=== PATIENT | male | born 1965 | race Two or more races ===

== ENCOUNTER 2018-08-06 11:30 | Inpatient (IN) | payer OTHER ==
[2018-08-06 11:59] VITALS: BMI 25.0
--- NOTE | 2018-08-06 16:59 | HP ---
CIWA Score - CIWA Score Nausea/Vomitin-No Nausea/No Vomiting Muscle Tremors: 4-Moderate,w/Arms Extend Anxiety: 2 Agitation: 2 Paroxysmal Sweats: 2 Orientation: 1-Uncertain about Date (no distress) Tacttile Disturbances: 1-Very Mild Itch/Numbness Auditory Disturbances: 1-Very Mild Visual Disturbances: 1-Very Mild Sensitivity Headache: 0-None Present CIWA-Ar Total Score: 14 Admission [facility] - HPI Chief Complaint: Benzo and alcohol withdrawal Allergies/Adverse Reactions: Allergies Allergy/AdvReac Type Severity Reaction Status Date / Time No Known Drug Allergies Allergy Severe Hives and Verified 08/06/18 14:15 swelling of the throat. FRESH FRUITS Allergy Severe Hives and Uncoded 08/06/18 14:14 swelling of the throat. FRESH VEGETABLES Allergy Severe Hives and Uncoded 08/06/18 14:16 swelling of the throat. NKDA Allergy Uncoded 08/06/18 14:16 History of Present Illness: Pt is a 50yr old male with a history of nicotine, alcohol, klonopin, xanax dependence seeking detox for treatment. Last detox [facility] March 2016. MMTP: Agustin Garcias receiving 170mg last dose received today, dose pending verification. Reports was in the emergency room three days ago for pneumonia and is currently on abx. PMHX: Hep C, COPD, spinal stenosis, HDL, Pre-diabetes, depression, bipolar. Denies suicidal / homicidal ideation. Reports hx of suicide attempt six months ago and was admitted to [facility]. Reports hx of benzo seizure withdrawal seizure with last episode eight months ago. Reports hx of incarceration for drug sales [phone]. Longest period of sobriety 15 years. Exam Limitations: No Limitations - Ebola screening Have you traveled outside of the country in the last 21 days: No (N) Have you had contact with anyone from an Ebola affected area: No Have you been sick,other than usual withdrawal symptoms: No Do you have a fever: No - Review of Systems Constitutional: Loss of Appetite, Weakness, Unintentional Wgt. Loss (15 lbs last 30 days) EENT: reports: Other (wears aglsses) Respiratory: reports: See HPI, SOB with Exertion GI: reports: Constipated (last BM this morning), Poor Appetite, Poor Fluid Intake : reports: Frequency Musculoskeletal: reports: Back Pain Integumentary: reports: No Symptoms Reported Neuro: reports: See HPI, Dizziness Endocrine: reports: Increased Thirst Hematology: reports: No Symptoms Reported Psychiatric: reports: Orientated x3, Depressed Other Systems: Reviewed and Negative Patient History - Patient Medical History Hx Anemia: No Hx Asthma: No Hx Chronic Obstructive Pulmonary Disease (COPD): Yes Hx Cancer: No Hx Cardiac Disorders: No Hx Congestive Heart Failure: No Hx Hypertension: No Hx Hypercholesterolemia: No Hx Pacemaker: No HX Cerebrovascular Accident: No Hx Seizures: Yes (drug related x2-last episode was in 2015) Hx Dementia: No Hx Diabetes: Yes (Pre-Diabetes ) Hx Gastrointestinal Disorders: No Hx Liver Disease: Yes (Hep C) Hx Genitourinary Disorders: No Hx Sexually Transmitted Disorders: No Hx Renal Disease (ESRD): No Hx Thyroid Disease: No Hx Human Immunodeficiency Virus (HIV): No (negative) Hx Hepatitis C: Yes (Treated ) Hx Depression: Yes Hx Suicide Attempt: Yes (pill overdose in 02/2018) Hx Bipolar Disorder: No Hx Schizophrenia: No - Patient Surgical History Past Surgical History: Yes Hx Neurologic Surgery: No Hx Cataract Extraction: No Hx Cardiac Surgery: No Hx Lung Surgery: No Hx Breast Surgery: No Hx Breast Biopsy: No Hx Abdominal Surgery: No Hx Appendectomy: No Hx Cholecystectomy: No Hx Genitourinary Surgery: No Hx Section: No Hx Orthopedic Surgery: No Other Surgical History: bilateral inguinal hernia repair Anesthesia Reaction: No - PPD History Previous Implant?: Yes Documented Results: Negative w/proof Implanted On Prior [facility] Admission?: Yes Date: 04/07/16 Results: 0 mm PPD to be Administered?: Yes - Smoking Cessation Smoking history: Current every day smoker Have you smoked in the past 12 months: Yes Aproximately how many cigarettes per day: 2 If you are a former smoker, when did you quit?: 01/2016 Hx Chewing Tobacco Use: No Initiated information on smoking cessation: Yes 'Breaking Loose' booklet given: 08/06/18 - Substance & Tx. History Hx Alcohol Use: Yes Hx Substance Use: Yes Substance Use Type: Alcohol, Tranquilizers Hx Substance Use Treatment: Yes (Last detox [facility] March 2016.) - Substances Abused Alcohol-four [place] Route: Oral Frequency: Daily Amount used: 3 cans (24 oz.) Age of first use: 15 Date of Last Use: 08/06/18 Cloninpine Route: Oral Frequency: Daily Amount used: 4-6 pills Age of first use: 35 Date of Last Use: 08/06/18 Methadone Route: Oral Frequency: Daily Amount used: 170 mg Age of first use: 35 Date of Last Use: 08/06/18 Klonopin Route: Oral Frequency: Daily Amount used: 3-6 tabs. (20 mg.) Age of first use: 35 Date of Last Use: 08/06/18 Family Disease History - Family Disease History Family Disease History: Heart Disease: Mother, [place]: Grandparent, Father, Mother Admission Physical Exam [facility] - Vital Signs Vital Signs: Vital Signs - 24 hr 08/06/18 11:56 Temperature 97.2 F L Pulse Rate 75 Respiratory 17 Rate Blood Pressure 109/75 - Physical General Appearance: Yes: Disheveled, Moderate Distress, Thin, Tremorous, Anxious HEENTM: Yes: Hearing grossly Normal, Normal ENT Inspection, Normocephalic, Normal Voice, LIZBETH, Pharynx Normal, Tm's normal Respiratory: Yes: Chest Non-Tender, Lungs Clear, Normal Breath Sounds, No Respiratory Distress, No Accessory Muscle Use Neck: Yes: Within Normal Limits Breast: Yes: Breast Exam Deferred Cardiology: Yes: Regular Rhythm, Regular Rate Abdominal: Yes: Normal Bowel Sounds, Non Tender, Flat, Soft Genitourinary: Yes: Within Normal Limits Back: Yes: Normal Inspection Musculoskeletal: Yes: full range of Motion, Gait Steady, Pelvis Stable, Back pain Extremities: Yes: Normal Capillary Refill, Normal Inspection, Normal Range of Motion, Non-Tender Neurological: Yes: 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 intact, Fully Oriented, Alert, Motor Strength 5/5, Depressed Affect Integumentary: Yes: Normal Color, Warm, Moist Lymphatic: Yes: Within Normal Limits - Diagnostic (1) Chronic back pain Current Visit: Yes Status: Chronic Qualifiers: Back pain location: low back pain Back pain laterality: midline Sciatica presence: without sciatica Qualified Code(s): M54.5 - Low back pain; G89.29 - Other chronic pain (2) COPD (chronic obstructive pulmonary disease) Current Visit: Yes Status: Chronic Qualifiers: COPD type: unspecified COPD Qualified Code(s): J44.9 - Chronic obstructive pulmonary disease, unspecified (3) Prediabetes Current Visit: Yes Status: Chronic (4) Alcohol dependence with uncomplicated withdrawal Current Visit: Yes Status: Acute (5) Nicotine dependence Current Visit: Yes Status: Acute Qualifiers: Nicotine product type: cigarettes (6) Opioid dependence on agonist therapy Current Visit: No Status: Acute (7) Right foot drop Current Visit: Yes Status: Chronic (8) Uncomplicated sedative, hypnotic or anxiolytic withdrawal Current Visit: Yes Status: Acute Cleared for Admission [facility] - Detox or Rehab [facility] Level of Care: Medically Managed Detox Regimen/Protocol: Librium [facility] Breath Alcohol Content Breath Alcohol Content: 0 Urine Drug Screen - Results Drug Screen Negative: No Urine Drug Screen Results: BZO-Benzodiazepines, MTD-Methadone
[2018-08-06] MEDS ORDERED: ALBUTEROL SO4 2.5/IPRATROPIUM 0.5 INH SOL 3 ML VIAL.NEB. NEB PRN (17:10)
[2018-08-06] MEDS ORDERED: MAG HYDROX/AL HYDROX/SIMETH 30 ML UNIT-DOSE CUP PO PRN (17:12)
[2018-08-06] MEDS ORDERED: ACETAMINOPHEN 325 MG TABLET (FP) PO PRN (17:12)
[2018-08-06] MEDS ORDERED: NICOTINE POLACRILEX 2 MG GUM BC PRN (17:12)
[2018-08-06] MEDS ORDERED: P-EPHED 60MG/TRIPROLIDI 2.5MG TABLET PO PRN (17:12)
[2018-08-06] MEDS ORDERED: MAGNESIUM CITRATE 300 ML BOTTLE PO PRN (17:12)
[2018-08-06] MEDS ORDERED: LOPERAMIDE HCL 2 MG CAPSULE PO PRN (17:12)
[2018-08-06] MEDS ORDERED: IBUPROFEN 400 MG TABLET (FP) PO PRN (17:12)
[2018-08-06] MEDS ORDERED: MAGNESIUM HYDROX 2400MG/30ML ORAL SUSPENSION 30 ML CUP PO PRN (17:12)
[2018-08-06] MEDS ORDERED: guaiFENesin/D-METHORPHAN HB 10 ML UNIT-DOSE CUPS PO PRN (17:12)
[2018-08-06] MEDS ORDERED: chlordiazePOXIDE HCL 25 MG CAPSULE PO PRN (17:12)
[2018-08-06] MEDS ORDERED: MENTHOL/PHENOL 1 EACH UD MM PRN (17:12)
[2018-08-06] MEDS ORDERED: chlordiazePOXIDE HCL 25 MG CAPSULE PO ONE (18:00)
[2018-08-06] MEDS: DOXYCYCLINE HYCLATE 100 MG CAPSULE PO SCH (19:20)
[2018-08-06] MEDS: ALBUTEROL SO4 8 GM HFA INHALER IH PRN (19:21)
[2018-08-06] MEDS: THIAMINE HCL 100 MG TABLET (FP) PO SCH (22:24)
[2018-08-06] MEDS: BUDESONIDE/FORMETEROL FUMARATE 160/4.5 mcg INHALER IH SCH (22:24)
[2018-08-06] MEDS: chlordiazePOXIDE HCL 25 MG CAPSULE PO SCH (22:25)
[2018-08-06] MEDS: MELATONIN 5 MG TABLETS PO PRN (22:25)
[2018-08-07 01:04] LABS: URINE APPEARANCE CLEAR; URINE BILIRUBIN NEGATIVE (<2.0 mg/dL); URINE COLOR YELLOW; URINE GLUCOSE (UA) NEGATIVE (NEGATIVE); URINE KETONE NEGATIVE (NEGATIVE); URINE LEUK ESTERASE TRACE (NEGATIVE); URINE NITRITE NEGATIVE (NEGATIVE); URINE PROTEIN NEGATIVE (NEGATIVE); URINE UROBILINOGEN NEGATIVE mg/dL (0.2-1.0)
[2018-08-07 01:33] LABS: EPI CELLS RARE /HPF (FEW); URINE HYALINE CAST 3 /lpf; URINE MUCUS RARE
[2018-08-07] MEDS: DOXYCYCLINE HYCLATE 100 MG CAPSULE PO SCH ×2 (05:25→18:12)
[2018-08-07] MEDS: chlordiazePOXIDE HCL 25 MG CAPSULE PO SCH ×4 (05:25→22:15)
[2018-08-07] MEDS: ALBUTEROL SO4 8 GM HFA INHALER IH PRN ×2 (05:26→08:50)
[2018-08-07] MEDS ORDERED: METHADONE HCL 40 MG DISPERSABLE TABLET PO ONE (08:47)
[2018-08-07] MEDS ORDERED: predniSONE 20 MG TABLET (UD) PO SCH (10:00)
[2018-08-07 10:12] LABS: HEMOGLOBIN 13.3 GM/dL (11.7-16.9); MCH 28.6 pg (25.7-33.7); MCHC 31.8 g/dl (32.0-35.9); MEAN CELL VOLUME 90.1 fl (80-96); MEAN PLT VOLUME 8.7 fl (7.5-11.1); PLATELET COUNT 238 K/MM3 (134-434); RBC 4.66 M/mm3 (4.00-5.60); RDW 14.8 % (11.9-15.9); WHITE BLOOD COUNT 9.5 K/mm3 (4.0-10.0)
--- NOTE | 2018-08-07 10:15 | EKG ---
Test Reason : Blood Pressure : / mmHG Vent. Rate : 086 BPM Atrial Rate : 086 BPM P-R Int : 146 ms QRS Dur : 080 ms QT Int : 338 ms P-R-T Axes : 084 079 074 degrees QTc Int : 404 ms NORMAL SINUS RHYTHM NORMAL ECG NO PREVIOUS ECGS AVAILABLE Confirmed by CAROL DRAPER MD ([id number]) on 08/07/2018 10:14:48 AM Referred By: Confirmed By:CAROL DRAPER MD
[2018-08-07 10:33] LABS: ALBUMIN 4.1 g/dl (3.4-5.0); ALK PHOS 72 U/L (45-117); ANION GAP 9 MMOL/L (8-16); BILIRUBIN,TOTAL 0.2 mg/dL (0.2-1); BLOOD UREA NITROGEN 14 mg/dL (7-18); CALCIUM 9.6 mg/dL (8.5-10.1); CHLORIDE 108 mmol/L (98-107); CO2 27 mmol/L (21-32); GLUCOSE,RANDOM 78 mg/dL (74-106); POTASSIUM 4.2 mmol/L (3.5-5.1); SGOT/AST 48 U/L (15-37); SGPT/ALT 40 U/L (13-61); SODIUM 144 mmol/L (136-145)
[2018-08-07] MEDS: predniSONE 20 MG TABLET (UD) PO SCH (10:34)
[2018-08-07] MEDS: NICOTINE 14 MG/24 HOURS TOPICAL PATCH TD SCH (10:34)
[2018-08-07] MEDS: PRENATAL VITAMINS W/ FOLIC ACID TABLET (FP) PO SCH (10:34)
[2018-08-07] MEDS: BUDESONIDE/FORMETEROL FUMARATE 160/4.5 mcg INHALER IH SCH ×2 (10:34→22:14)
[2018-08-07] MEDS ORDERED: FLU VACCINE QUAD 60 MCG/0.5 ML (MDV 18-19) IM ONE (12:00)
[2018-08-07] MEDS: DOCUSATE SODIUM 100 MG CAPSULE (FP) PO SCH ×2 (12:24→22:14)
--- NOTE | 2018-08-07 16:48 | PN ---
S CIWA - CIWA Score Nausea/Vomitin Muscle Tremors: 4-Moderate,w/Arms Extend Anxiety: 4-Mod. Anxious/Guarded Agitation: 4-Moderately Restless Paroxysmal Sweats: 3 Orientation: 0-Oriented Tacttile Disturbances: 0-None Auditory Disturbances: 0-None Visual Disturbances: 0-None Headache: 1-Very Mild CIWA-Ar Total Score: 18 BHS Progress Note (SOAP) Subjective: Tremor, sweating, constipation (no bm x 2 days, requesting colace 100mg bid and MOM) Objective: 08/07/18 16:47 Last Vital Signs Temp Pulse Resp BP Pulse Ox 97.8 F 80 18 128/73 08/07/18 14:22 08/07/18 14:22 08/07/18 14:22 08/07/18 14:22 Laboratory Tests 08/06/18 08/07/18 08/07/18 15:45 00:30 05:24 WBC RBC Hgb Hct MCV MCH MCHC RDW Plt Count MPV Sodium Potassium Chloride Carbon Dioxide Anion Gap BUN Creatinine Creat Clearance w eGFR POC Glucometer 103 Random Glucose Calcium Total Bilirubin AST ALT Alkaline Phosphatase Total Protein Albumin Urine Color Yellow Urine Appearance Clear Urine pH 5.0 Ur Specific [place] 1.013 Urine Protein Negative Urine Glucose (UA) Negative Urine Ketones Negative Urine Blood Negative Urine Nitrite Negative Urine Bilirubin Negative Urine Urobilinogen Negative Ur Leukocyte Esterase Trace Urine WBC (Auto) 3 Urine RBC (Auto) <1 Ur Epithelial Cells Rare Hyaline Casts 3 Urine Mucus Rare RPR Titer HIV 1&2 Antibody Screen Negative HIV P24 Antigen Negative 08/07/18 08/07/18 08/07/18 06:00 06:00 06:00 WBC 9.5 RBC 4.66 Hgb 13.3 Hct 42.0 MCV 90.1 MCH 28.6 MCHC 31.8 L RDW 14.8 Plt Count 238 D MPV 8.7 Sodium 144 Potassium 4.2 Chloride 108 H Carbon Dioxide 27 Anion Gap 9 BUN 14 Creatinine 1.0 Creat Clearance w eGFR > 60 POC Glucometer Random Glucose 78 Calcium 9.6 Total Bilirubin 0.2 AST 48 H ALT 40 Alkaline Phosphatase 72 Total Protein 8.0 Albumin 4.1 Urine Color Urine Appearance Urine pH Ur Specific [place] Urine Protein Urine Glucose (UA) Urine Ketones Urine Blood Urine Nitrite Urine Bilirubin Urine Urobilinogen Ur Leukocyte Esterase Urine WBC (Auto) Urine RBC (Auto) Ur Epithelial Cells Hyaline Casts Urine Mucus RPR Titer Nonreactive HIV 1&2 Antibody Screen HIV P24 Antigen Labs reviewed Assessment: 08/07/18 16:47 Withdrawal sxs Plan: Continue detox Encouraged PO water hydration
--- NOTE | 2018-08-07 16:57 | CONSULT ---
[facility] Psychiatric Consult - Data Date of interview: 08/07/18 Admission source: [facility] Identifying data: Re-admission to [facility] for this 50 y/o male seeking detox treatment on for alcohol and benzodiazepine dependence.Patient is ,a father of three,unemployed,domiciled and supported on SSI benefits. Substance Abuse History: Discussed with the patient in this interview.Mr Cox confirms substance abuse profile reported in the following [facility] current files : Smoking history: Current every day smoker. Have you smoked in the past 12 months: Yes. Aproximately how many cigarettes per day: 2. If you are a former smoker, when did you quit?: 01/2016. Hx Chewing Tobacco Use: No. Initiated information on smoking cessation: Yes. 'Breaking Loose' booklet given: . - Substance & Tx. History. Hx Alcohol Use: Yes. Hx Substance Use: Yes. Substance Use Type: Alcohol, Tranquilizers. Hx Substance Use Treatment: Yes ( Last detox [facility] March 2016.). - Substances Abused. Alcohol-four [place]. Route : Oral. Frequency: Daily. Amount used: 3 cans (24 oz.). Age of first use: 15. Date of Last Use: 08/06/18. Cloninpine. Route: Oral. Frequency: Daily. Amount used: 4-6 pills. Age of first use: 35. Date of Last Use: . Methadone. Route: Oral. Frequency: Daily. Amount used: 170 mg. Age of first use: 35. Date of Last Use: 08/06/18. Klonopin. Route: Oral. Frequency: Daily. Amount used: 3-6 tabs. (20 mg.). Age of first use: 35. Date of Last Use: 08/06/18 Medical History: COPD,emphysema,history of herniated disks (L1-L5),spinal stenosis,arthritis,dyslipidemia,hepatitis C and a history of substance-induced seizures (10/2014). Psychiatric History: Patient, in this encounter, admits to a history of two psychiatric hospitalizations ([facility] and a facility in [place]). Diagnosed with Bipolar Disorder. Medicated with buspar,olanzapine and wellbutrin (doses not recalled). Brief period of psychiatric follow-up at one of the [facility] clinics in the [place]. Patient presents with a profile on non- adherence to psychotropic medications with the exception of methadone ( currently on methadone maintenance (daily lxxy=603 mg) at the [facility] program in [place], [place]). Mr Cox denies history of suicide attempts. Physical/Sexual Abuse/Trauma History: Patient denies. Additional Comment: Urine Drug Screen Results: BZO-Benzodiazepines, MTD- Methadone.Noted. Mental Status Exam - Mental Status Exam Alert and Oriented to: Time, Place, Person Cognitive Function: Good Patient Appearance: Well Groomed Mood: Withdrawn, Anxious Affect: Mood Congruent, Constricted Patient Behavior: Sedated (mildly sedated), Fatigued Speech Pattern: Clear, Appropriate Voice Loudness: Normal Thought Process: Goal Oriented Thought Disorder: Not Present Hallucinations: Denies Suicidal Ideation: Denies Homicidal Ideation: Denies Insight/Judgement: Poor Sleep: Poorly, Difficulty falling asleep Appetite: Fair Muscle strength/Tone: Normal Gait/Station: Normal Psychiatric Findings - Problem List ([place] 1, 2,3) (1) Alcohol dependence with uncomplicated withdrawal Current Visit: Yes Status: Acute (2) Opioid dependence on agonist therapy Current Visit: Yes Status: Acute (3) Uncomplicated sedative, hypnotic or anxiolytic withdrawal Current Visit: Yes Status: Acute (4) Nicotine dependence Current Visit: Yes Status: Chronic Qualifiers: Nicotine product type: cigarettes - Initial Treatment Plan Initial Treatment Plan: Psychoeducation.Sleep hygiene.Detoxification in progress. Observation.
[2018-08-07] MEDS: THIAMINE HCL 100 MG TABLET (FP) PO SCH (22:14)
[2018-08-08] MEDS: METHADONE HCL 40 MG DISPERSABLE TABLET PO SCH (05:42)
[2018-08-08] MEDS: DOXYCYCLINE HYCLATE 100 MG CAPSULE PO SCH ×2 (05:43→17:43)
[2018-08-08] MEDS: chlordiazePOXIDE HCL 25 MG CAPSULE PO SCH ×3 (05:43→17:43)
[2018-08-08] MEDS: BUDESONIDE/FORMETEROL FUMARATE 160/4.5 mcg INHALER IH SCH ×2 (10:03→22:46)
[2018-08-08] MEDS: DOCUSATE SODIUM 100 MG CAPSULE (FP) PO SCH ×2 (10:03→22:47)
[2018-08-08] MEDS: predniSONE 20 MG TABLET (UD) PO SCH (10:03)
[2018-08-08] MEDS: PRENATAL VITAMINS W/ FOLIC ACID TABLET (FP) PO SCH (10:03)
[2018-08-08] MEDS: NICOTINE 14 MG/24 HOURS TOPICAL PATCH TD SCH (10:04)
--- NOTE | 2018-08-08 12:16 | PN ---
S CIWA - CIWA Score Nausea/Vomitin Muscle Tremors: 2 Anxiety: 2 Agitation: 2 Paroxysmal Sweats: 1-Minimal Palms Moist Orientation: 0-Oriented Tacttile Disturbances: 1-Very Mild Itch/Numbness Auditory Disturbances: 1-Very Mild Visual Disturbances: 1-Very Mild Sensitivity Headache: 2-Mild CIWA-Ar Total Score: 14 S Progress Note (SOAP) Subjective: alert,irritable,anxious,interrupted sleep,pain in the body and back Objective: 08/08/18 12:15 Vital Signs Temperature 99.0 F 08/08/18 10:00 Pulse Rate 65 08/08/18 10:00 Respiratory Rate 18 08/08/18 10:00 Blood Pressure 127/79 08/08/18 10:00 O2 Sat by Pulse Oximetry (%) Laboratory Last Values WBC 9.5 K/mm3 (4.0-10.0) 08/07/18 06:00 RBC 4.66 M/mm3 (4.00-5.60) 08/07/18 06:00 Hgb 13.3 GM/dL (11.7-16.9) 08/07/18 06:00 Hct 42.0 % (35.4-49) 08/07/18 06:00 MCV 90.1 fl (80-96) 08/07/18 06:00 MCH 28.6 pg (25.7-33.7) 08/07/18 06:00 MCHC 31.8 g/dl (32.0-35.9) L 08/07/18 06:00 RDW 14.8 % (11.9-15.9) 08/07/18 06:00 Plt Count 238 K/MM3 (134-434) D 08/07/18 06:00 MPV 8.7 fl (7.5-11.1) 08/07/18 06:00 Sodium 144 mmol/L (136-145) 08/07/18 06:00 Potassium 4.2 mmol/L (3.5-5.1) 08/07/18 06:00 Chloride 108 mmol/L (98-107) H 08/07/18 06:00 Carbon Dioxide 27 mmol/L (21-32) 08/07/18 06:00 Anion Gap 9 MMOL/L (8-16) 08/07/18 06:00 BUN 14 mg/dL (7-18) 08/07/18 06:00 Creatinine 1.0 mg/dL (0.55-1.3) 08/07/18 06:00 Creat Clearance w eGFR > 60 (>60) 08/07/18 06:00 POC Glucometer 103 UNITS (80-120) 08/08/18 05:44 Random Glucose 78 mg/dL (74-106) 08/07/18 06:00 Calcium 9.6 mg/dL (8.5-10.1) 08/07/18 06:00 Total Bilirubin 0.2 mg/dL (0.2-1) 08/07/18 06:00 AST 48 U/L (15-37) H 08/07/18 06:00 ALT 40 U/L (13-61) 08/07/18 06:00 Alkaline Phosphatase 72 U/L (45-117) 08/07/18 06:00 Total Protein 8.0 g/dl (6.4-8.2) 08/07/18 06:00 Albumin 4.1 g/dl (3.4-5.0) 08/07/18 06:00 Urine Color Yellow 08/07/18 00:30 Urine Appearance Clear 08/07/18 00:30 Urine pH 5.0 (5.0-8.0) 08/07/18 00:30 Ur Specific [place] 1.013 (1.010-1.035) 08/07/18 00:30 Urine Protein Negative (NEGATIVE) 08/07/18 00:30 Urine Glucose (UA) Negative (NEGATIVE) 08/07/18 00:30 Urine Ketones Negative (NEGATIVE) 08/07/18 00:30 Urine Blood Negative (NEGATIVE) 08/07/18 00:30 Urine Nitrite Negative (NEGATIVE) 08/07/18 00:30 Urine Bilirubin Negative (<2.0 mg/dL) 08/07/18 00:30 Urine Urobilinogen Negative mg/dL (0.2-1.0) 08/07/18 00:30 Ur Leukocyte Esterase Trace (NEGATIVE) 08/07/18 00:30 Urine WBC (Auto) 3 /hpf (3-5) 08/07/18 00:30 Urine RBC (Auto) <1 /hpf (0-3) 08/07/18 00:30 Ur Epithelial Cells Rare /HPF (FEW) 08/07/18 00:30 Hyaline Casts 3 /lpf 08/07/18 00:30 Urine Mucus Rare 08/07/18 00:30 RPR Titer Nonreactive (NONREACTIVE) 08/07/18 06:00 HIV 1&2 Antibody Screen Negative 08/06/18 15:45 HIV P24 Antigen Negative 08/06/18 15:45 Assessment: 08/08/18 12:15 withdrawal symptom Plan: continue detox,glucerna 1 can po bid
[2018-08-08] MEDS ORDERED: CYCLOBENZAPRINE HCL 10 MG TABLET (FP) PO ONE (17:00)
[2018-08-08] MEDS: CYCLOBENZAPRINE HCL 5 MG TABLET PO PRN (22:47)
[2018-08-08] MEDS: THIAMINE HCL 100 MG TABLET (FP) PO SCH (22:47)
[2018-08-08] MEDS: chlordiazePOXIDE 5 MG CAPSULE PO SCH (22:47)
[2018-08-08] MEDS: MELATONIN 5 MG TABLETS PO PRN (22:49)
[2018-08-09] MEDS: METHADONE HCL 40 MG DISPERSABLE TABLET PO SCH (05:53)
[2018-08-09] MEDS: chlordiazePOXIDE 5 MG CAPSULE PO SCH ×3 (05:53→17:51)
[2018-08-09] MEDS: DOXYCYCLINE HYCLATE 100 MG CAPSULE PO SCH ×2 (05:53→17:51)
[2018-08-09] MEDS: DOCUSATE SODIUM 100 MG CAPSULE (FP) PO SCH ×2 (10:45→22:25)
[2018-08-09] MEDS: BUDESONIDE/FORMETEROL FUMARATE 160/4.5 mcg INHALER IH SCH ×2 (10:45→22:24)
[2018-08-09] MEDS: PRENATAL VITAMINS W/ FOLIC ACID TABLET (FP) PO SCH (10:46)
[2018-08-09] MEDS: predniSONE 20 MG TABLET (UD) PO SCH (10:46)
[2018-08-09] MEDS: NICOTINE 14 MG/24 HOURS TOPICAL PATCH TD SCH (10:48)
--- NOTE | 2018-08-09 17:06 | PN ---
BHS Progress Note (SOAP) Subjective: Chills, sweating, tremor, interrupted sleep Objective: 08/09/18 17:06 Last Vital Signs Temp Pulse Resp BP Pulse Ox 97.4 F L 81 20 117/70 08/09/18 14:01 08/09/18 14:01 08/09/18 14:01 08/09/18 14:01 Laboratory Tests 08/06/18 08/07/18 08/07/18 15:45 00:30 05:24 WBC RBC Hgb Hct MCV MCH MCHC RDW Plt Count MPV Sodium Potassium Chloride Carbon Dioxide Anion Gap BUN Creatinine Creat Clearance w eGFR POC Glucometer 103 Random Glucose Calcium Total Bilirubin AST ALT Alkaline Phosphatase Total Protein Albumin Urine Color Yellow Urine Appearance Clear Urine pH 5.0 Ur Specific [place] 1.013 Urine Protein Negative Urine Glucose (UA) Negative Urine Ketones Negative Urine Blood Negative Urine Nitrite Negative Urine Bilirubin Negative Urine Urobilinogen Negative Ur Leukocyte Esterase Trace Urine WBC (Auto) 3 Urine RBC (Auto) <1 Ur Epithelial Cells Rare Hyaline Casts 3 Urine Mucus Rare RPR Titer HIV 1&2 Antibody Screen Negative HIV P24 Antigen Negative 08/07/18 08/07/18 08/07/18 06:00 06:00 06:00 WBC 9.5 RBC 4.66 Hgb 13.3 Hct 42.0 MCV 90.1 MCH 28.6 MCHC 31.8 L RDW 14.8 Plt Count 238 D MPV 8.7 Sodium 144 Potassium 4.2 Chloride 108 H Carbon Dioxide 27 Anion Gap 9 BUN 14 Creatinine 1.0 Creat Clearance w eGFR > 60 POC Glucometer Random Glucose 78 Calcium 9.6 Total Bilirubin 0.2 AST 48 H ALT 40 Alkaline Phosphatase 72 Total Protein 8.0 Albumin 4.1 Urine Color Urine Appearance Urine pH Ur Specific [place] Urine Protein Urine Glucose (UA) Urine Ketones Urine Blood Urine Nitrite Urine Bilirubin Urine Urobilinogen Ur Leukocyte Esterase Urine WBC (Auto) Urine RBC (Auto) Ur Epithelial Cells Hyaline Casts Urine Mucus RPR Titer Nonreactive HIV 1&2 Antibody Screen HIV P24 Antigen 08/08/18 08/09/18 05:44 05:55 WBC RBC Hgb Hct MCV MCH MCHC RDW Plt Count MPV Sodium Potassium Chloride Carbon Dioxide Anion Gap BUN Creatinine Creat Clearance w eGFR POC Glucometer 103 122 Random Glucose Calcium Total Bilirubin AST ALT Alkaline Phosphatase Total Protein Albumin Urine Color Urine Appearance Urine pH Ur Specific [place] Urine Protein Urine Glucose (UA) Urine Ketones Urine Blood Urine Nitrite Urine Bilirubin Urine Urobilinogen Ur Leukocyte Esterase Urine WBC (Auto) Urine RBC (Auto) Ur Epithelial Cells Hyaline Casts Urine Mucus RPR Titer HIV 1&2 Antibody Screen HIV P24 Antigen Labs reviewed Assessment: 08/09/18 17:06 Withdrawal sxs Plan: Continue detox
[2018-08-09] MEDS: ALBUTEROL SO4 8 GM HFA INHALER IH PRN (19:22)
[2018-08-09] MEDS: THIAMINE HCL 100 MG TABLET (FP) PO SCH (22:24)
[2018-08-09] MEDS: CYCLOBENZAPRINE HCL 5 MG TABLET PO PRN (22:24)
[2018-08-09] MEDS: chlordiazePOXIDE HCL 10 MG CAPSULE PO SCH (22:24)
[2018-08-09] MEDS: MELATONIN 5 MG TABLETS PO PRN (22:26)
[2018-08-10] MEDS: METHADONE HCL 40 MG DISPERSABLE TABLET PO SCH (06:05)
[2018-08-10] MEDS: DOXYCYCLINE HYCLATE 100 MG CAPSULE PO SCH (06:05)
[2018-08-10] MEDS: chlordiazePOXIDE HCL 10 MG CAPSULE PO SCH ×2 (06:05→10:23)
[2018-08-10] MEDS: PRENATAL VITAMINS W/ FOLIC ACID TABLET (FP) PO SCH (10:21)
[2018-08-10] MEDS: NICOTINE 14 MG/24 HOURS TOPICAL PATCH TD SCH (10:21)
[2018-08-10] MEDS: DOCUSATE SODIUM 100 MG CAPSULE (FP) PO SCH (10:21)
[2018-08-10] MEDS: BUDESONIDE/FORMETEROL FUMARATE 160/4.5 mcg INHALER IH SCH (10:21)
--- NOTE | 2018-08-10 10:48 | DS ---
[facility] Detox Discharge Summary Admission Date: 08/06/18 Discharge Date: 08/10/18 - History Present History: Alcohol Dependence, Opioid Dependence, Sedative Dependence Pertinent Past History: Chronic back pain COPD Prediabetes - Physical Exam Results Vital Signs: Vital Signs Temperature 98.3 F 08/10/18 09:31 Pulse Rate 81 08/10/18 09:31 Respiratory Rate 18 08/10/18 09:31 Blood Pressure 120/75 08/10/18 09:31 O2 Sat by Pulse Oximetry (%) Pertinent Admission Physical Exam Findings: Withdrawal symptoms Laboratory Tests 08/06/18 08/07/18 08/07/18 15:45 00:30 05:24 WBC RBC Hgb Hct MCV MCH MCHC RDW Plt Count MPV Sodium Potassium Chloride Carbon Dioxide Anion Gap BUN Creatinine Creat Clearance w eGFR POC Glucometer 103 Random Glucose Calcium Total Bilirubin AST ALT Alkaline Phosphatase Total Protein Albumin Urine Color Yellow Urine Appearance Clear Urine pH 5.0 Ur Specific [place] 1.013 Urine Protein Negative Urine Glucose (UA) Negative Urine Ketones Negative Urine Blood Negative Urine Nitrite Negative Urine Bilirubin Negative Urine Urobilinogen Negative Ur Leukocyte Esterase Trace Urine WBC (Auto) 3 Urine RBC (Auto) <1 Ur Epithelial Cells Rare Hyaline Casts 3 Urine Mucus Rare RPR Titer HIV 1&2 Antibody Screen Negative HIV P24 Antigen Negative 08/07/18 08/07/18 08/07/18 06:00 06:00 06:00 WBC 9.5 RBC 4.66 Hgb 13.3 Hct 42.0 MCV 90.1 MCH 28.6 MCHC 31.8 L RDW 14.8 Plt Count 238 D MPV 8.7 Sodium 144 Potassium 4.2 Chloride 108 H Carbon Dioxide 27 Anion Gap 9 BUN 14 Creatinine 1.0 Creat Clearance w eGFR > 60 POC Glucometer Random Glucose 78 Calcium 9.6 Total Bilirubin 0.2 AST 48 H ALT 40 Alkaline Phosphatase 72 Total Protein 8.0 Albumin 4.1 Urine Color Urine Appearance Urine pH Ur Specific [place] Urine Protein Urine Glucose (UA) Urine Ketones Urine Blood Urine Nitrite Urine Bilirubin Urine Urobilinogen Ur Leukocyte Esterase Urine WBC (Auto) Urine RBC (Auto) Ur Epithelial Cells Hyaline Casts Urine Mucus RPR Titer Nonreactive HIV 1&2 Antibody Screen HIV P24 Antigen 08/08/18 08/09/18 05:44 05:55 WBC RBC Hgb Hct MCV MCH MCHC RDW Plt Count MPV Sodium Potassium Chloride Carbon Dioxide Anion Gap BUN Creatinine Creat Clearance w eGFR POC Glucometer 103 122 Random Glucose Calcium Total Bilirubin AST ALT Alkaline Phosphatase Total Protein Albumin Urine Color Urine Appearance Urine pH Ur Specific [place] Urine Protein Urine Glucose (UA) Urine Ketones Urine Blood Urine Nitrite Urine Bilirubin Urine Urobilinogen Ur Leukocyte Esterase Urine WBC (Auto) Urine RBC (Auto) Ur Epithelial Cells Hyaline Casts Urine Mucus RPR Titer HIV 1&2 Antibody Screen HIV P24 Antigen Labs reviewed - Treatment Hospital Course: Detox Protocol Followed, Detoxed Safely, Responded well, Discharged Condition Good - Medication Discharge Medications: Ambulatory Orders Albuterol Sulfate Inhaler - [Ventolin HFA Inhaler -] 2 puff IH Q4H PRN #1 inhaler 04/23/16 Budesonide/Formeterol Fumarate [SYMBICORT 160/4.5mcg -] 1 puff IH BID #1 inhaler 04/23/16 Bupropion HCl [Wellbutrin Xl -] 150 mg PO HS 08/06/18 Buspirone HCl [Buspar -] 15 mg PO BID 08/06/18 Doxycycline Hyclate [Vibramycin -] 100 mg PO Q12H 08/06/18 Olanzapine [Zyprexa] 20 mg PO HS 08/06/18 Prednisone [Deltasone] 60 mg PO DAILY 08/06/18 - Diagnosis (1) Alcohol dependence with uncomplicated withdrawal Current Visit: Yes Status: Acute (2) Nicotine dependence Current Visit: Yes Status: Chronic Qualifiers: Nicotine product type: cigarettes (3) Opioid dependence on agonist therapy Current Visit: Yes Status: Acute (4) Uncomplicated sedative, hypnotic or anxiolytic withdrawal Current Visit: Yes Status: Acute (5) COPD (chronic obstructive pulmonary disease) Current Visit: Yes Status: Chronic Qualifiers: COPD type: unspecified COPD Qualified Code(s): J44.9 - Chronic obstructive pulmonary disease, unspecified (6) Chronic back pain Current Visit: Yes Status: Chronic Qualifiers: Back pain location: low back pain Back pain laterality: midline Sciatica presence: without sciatica Qualified Code(s): M54.5 - Low back pain; G89.29 - Other chronic pain (7) Prediabetes Current Visit: Yes Status: Chronic - AMA Did Patient Leave Against Medical Advice: No (F/U with your PCP within 1-2 weeks )
[2018-08-10 13:32] VITALS: BP 140/79; PULSE 92; TEMP 98.8
== END 2018-08-10 13:50 | disposition home or self-care (01) | DRG 773 ==
LOC: YASAS 11:30 → Y3N 16:58
PROC: HZ2ZZZZ Detoxification Services for Substance Abuse Treatment (ICD-10-PCS; principal; 2018-08-06)
DX: F10.230 Alcohol dependence with withdrawal, uncomplicated (principal); F11.20 Opioid dependence, uncomplicated; F13.230 Sedative, hypnotic or anxiolytic dependence with withdrawal, uncomplicated; F17.210 Nicotine dependence, cigarettes, uncomplicated; R73.03 Prediabetes; J43.9 Emphysema, unspecified; M54.5 Low back pain; G89.29 Other chronic pain; M21.371 Foot drop, right foot; Z86.69 Personal history of other diseases of the nervous system and sense organs; Z91.5 Personal history of self-harm
CPT/HCPCS: 36415; 80053; 81003; 81015; 82962; 85027; 86593; 87389; 90688; 93005; 93010; G0008